=== PATIENT | male | born 1995 | race Caucasian/White ===

== ENCOUNTER 2017-08-27 20:12 | Emergency (ER) | payer MEDICAID ==
[~2017-08-27] VITALS: Ht 175.3 cm; Wt 56.4 kg
[2017-08-27 20:20] VITALS: TEMP 97.9
[2017-08-27] MEDS ORDERED: NOVOLOG 100U100 U/M1 SQ (20:25)
[2017-08-27] MEDS ORDERED: TRESIBA FL100 UNIT/1 SQ (20:26)
[2017-08-27 20:59] LABS: VENOUS BLOOD GAS BE -10.2 (-4-4); VENOUS BLOOD GAS SAO2 46.2 % (60-80)
[2017-08-27 21:00] LABS: VENOUS BLOOD GAS SITE VENIPUNCTURE
[2017-08-27 21:04] LABS: BASO # 0.1 (0.0-0.2); BASO % 1.1 % (0.0-2.0); EOS # 0.4 (0.0-0.7); EOS % 4.8 % (0-4.0); GRAN # 4.2 (1.4-6.5); GRAN % 56.2 % (42.2-75.2); HEMATOCRIT 43.4 % (36.0-47.0); HEMOGLOBIN 15.6 g/dl (12.5-16.1); LYMPH # 2.5 (1.2-3.4); LYMPH % 32.6 % (20.0-51.0); MEAN CELL VOLUME 83 fl (80.0-95.0); MEAN CORPUSCULAR HEMOGLOBIN 30 pg (26.0-32.0); MEAN CORPUSCULAR HGB CONC 36 g/dl (33.0-37.0); MONO # 0.4 (0.1-0.6); PLATELET COUNT 229 K/mm3 (130-400); RED BLOOD COUNT 5.23 M/mm3 (4.20-5.60); REDCELL DISTRIBUTION WIDTH-CV 11.5 % (11.5-14.5); WHITE BLOOD COUNT 7.5 K/mm3 (4.8-10.8)
[2017-08-27 21:12] LABS: ADJUSTED CALCIUM 9.2 mg/dL (8.4-10.2); ALANINE AMINOTRANSFERASE 19 U/L (21-72); ALKALINE PHOSPHATASE 241 U/L (50-136); ANION GAP 23 mmol/L (7-16); BILIRUBIN,TOTAL 1.1 mg/dL (0.0-1.0); BLOOD UREA NITROGEN 22 mg/dL (9-20); CARBON DIOXIDE 16 mmol/L (22-30); CREATININE, serum 0.76 mg/dL (0.66-1.25); LIPASE 57 U/L (23-300); POTASSIUM 4.9 mmol/L (3.4-5.0); SODIUM 126 mmol/L (137-145); TOTAL PROTEIN 8.5 gm/dL (6.4-8.2)
[2017-08-27 21:19] LABS: CHLORIDE 87 mmol/L (98-107)
[2017-08-27 21:20] LABS: GLUCOSE 704 mg/dL (74-106)
[2017-08-27 22:10] LABS: PH 5 (5-8); SQUAMOUS EPITHELIAL None Seen /hpf; URINE APPEARANCE Clear; URINE BACTERIA None Seen /hpf; URINE BILIRUBIN Negative (NEGATIVE); URINE BLOOD Negative (NEGATIVE); URINE COLOR Colorless; URINE GLUCOSE 3+ (NEGATIVE); URINE KETONE 2+ (NEGATIVE); URINE RBC 0-2 /hpf; URINE UROBILINOGEN Negative (NEGATIVE); URINE WBC 0-2 /hpf
[2017-08-27 23:11] VITALS: BP 112/74; PULSE 94
== END 2017-08-27 23:12 | disposition short-term general hospital (02) ==
LOC: COL.ER 20:12
PROVIDERS: Emergency Medicine
DX: E10.10 Type 1 diabetes mellitus with ketoacidosis without coma (principal); E05.90 Thyrotoxicosis, unspecified without thyrotoxic crisis or storm
CPT/HCPCS: J1815; J7030

== ENCOUNTER 2017-10-25 12:25 | Inpatient (IN) | payer MEDICAID ==
[2017-10-25] VITALS (7 sets, daily range): BP systolic 103–116; BP diastolic 62–72; PULSE 89–104; TEMP 98.1–98.7
[~2017-10-25] VITALS: Ht 170.2 cm; Wt 50.6 kg
[~2017-10-25 12:25] MED LIST: LANTUS100 U/ML SQ; NOVOLOG 100U100 U/M1 SQ; TRESIBA FL100 UNIT/1 SQ
[2017-10-25 13:00] LABS: VENOUS BLOOD GAS SAO2 43.9 % (60-80)
[2017-10-25 13:04] LABS: VENOUS BLOOD GAS SITE VENIPUNCTURE
[2017-10-25] MEDS ORDERED: SYNTHROID0.075 MG/T PO (13:10)
[2017-10-25 13:12] LABS: BASO # 0.1 (0.0-0.2); BASO % 1.1 % (0.0-2.0); EOS # 0.2 (0.0-0.7); EOS % 2.7 % (0-4.0); GRAN # 3.1 (1.4-6.5); GRAN % 57.3 % (42.2-75.2); HEMATOCRIT 45.2 % (42.0-52.0); HEMOGLOBIN 15.9 g/dl (13.5-18.0); LYMPH # 1.8 (1.2-3.4); LYMPH % 32.2 % (20.0-51.0); MEAN CELL VOLUME 84 fl (80.0-100.0); MEAN CORPUSCULAR HEMOGLOBIN 30 pg (27.0-31.0); MEAN CORPUSCULAR HGB CONC 35 g/dl (33.0-37.0); MEAN PLATELET VOLUME 9.8 fl (7.4-10.4); MONO # 0.3 (0.1-0.6); MONO % 6.2 % (1.7-9.3); PLATELET COUNT 261 K/mm3 (130-400); RED BLOOD COUNT 5.37 M/mm3 (4.20-5.60); WHITE BLOOD COUNT 5.5 K/mm3 (4.8-10.8)
[2017-10-25 13:38] LABS: ADJUSTED CALCIUM 9.2 mg/dL (8.4-10.2); ALANINE AMINOTRANSFERASE 116 U/L (21-72); ALBUMIN 5.2 gm/dL (3.5-5.0); ALKALINE PHOSPHATASE 216 U/L (50-136); ANION GAP 27 mmol/L (7-16); BILIRUBIN,TOTAL 0.9 mg/dL (0.0-1.0); BLOOD UREA NITROGEN 15 mg/dL (9-20); CALCIUM 10.2 mg/dL (8.4-10.2); CHLORIDE 96 mmol/L (98-107); CREATININE, serum 0.81 mg/dL (0.66-1.25); SODIUM 135 mmol/L (137-145); TOTAL PROTEIN 8.8 gm/dL (6.4-8.2)
[2017-10-25 13:39] LABS: CARBON DIOXIDE 12 mmol/L (22-30); GLUCOSE 436 mg/dL (74-106)
[2017-10-25 13:53] LABS: ACETONE,SERUM MODERATE
[2017-10-25] MEDS ORDERED: LEVEMIR FLEX100 U/ML SQ (15:00)
[2017-10-25 20:34] LABS: CALCIUM 8.7 mg/dL (8.4-10.2); CREATININE, serum 0.64 mg/dL (0.66-1.25)
[2017-10-26] VITALS: BP 96/57; PULSE 81; TEMP 98
[2017-10-26 02:02] LABS: COLLECTION METHOD CLEAN CATCH
[2017-10-26 02:08] LABS: MUCOUS Present /lpf; PH 5 (5-8); SQUAMOUS EPITHELIAL None Seen /hpf; URINE APPEARANCE Clear; URINE BACTERIA None Seen /hpf; URINE BILIRUBIN Negative (NEGATIVE); URINE BLOOD Negative (NEGATIVE); URINE COLOR Yellow; URINE GLUCOSE 3+ (NEGATIVE); URINE KETONE 2+ (NEGATIVE); URINE LEUKOCYTE ESTERASE Negative (NEGATIVE); URINE PROTEIN(semi-quant) Negative (NEGATIVE); URINE RBC 0-2 /hpf; URINE UROBILINOGEN Negative (NEGATIVE); URINE WBC 0-2 /hpf
[2017-10-26 02:43] LABS: CALCIUM 8.7 mg/dL (8.4-10.2); CREATININE, serum 0.66 mg/dL (0.66-1.25); POTASSIUM 3.9 mmol/L (3.4-5.0)
[2017-10-26 04:00] VITALS: BP 102/46; PULSE 67
[2017-10-26 08:00] VITALS: BP 108/72; PULSE 69; TEMP 97.4
[2017-10-26 08:24] LABS: CALCIUM 8.7 mg/dL (8.4-10.2); CREATININE, serum 0.56 mg/dL (0.66-1.25)
[2017-10-26 12:00] VITALS: BP 115/69; PULSE 81; TEMP 97.6
[2017-10-26 16:00] VITALS: BP 113/64; PULSE 97; TEMP 97.5
[2017-10-26 18:56] LABS: CALCIUM 9.4 mg/dL (8.4-10.2); CREATININE, serum 0.8 mg/dL (0.66-1.25); POTASSIUM 4.2 mmol/L (3.4-5.0)
[2017-10-26 20:00] VITALS: BP 112/71; PULSE 83; TEMP 97.6
[2017-10-27 00:04] VITALS: BP 114/69; PULSE 86; TEMP 97.6
[2017-10-27 04:13] VITALS: BP 114/69; PULSE 89
[2017-10-27 05:53] LABS: CALCIUM 8.7 mg/dL (8.4-10.2); CREATININE, serum 0.67 mg/dL (0.66-1.25); MAGNESIUM 1.5 mg/dL (1.6-2.3); POTASSIUM 3.6 mmol/L (3.4-5.0)
[2017-10-27 07:00] VITALS: BP 112/66; PULSE 68; TEMP 98
[2017-10-27 12:35] VITALS: BP 115/73; PULSE 106; TEMP 97.7
== END 2017-10-27 15:04 | disposition home or self-care (01) | DRG 639 ==
LOC: COL.ER 12:25 → ICU 13:48
PROVIDERS: Emergency Medicine; Internal Medicine
DX: E10.10 Type 1 diabetes mellitus with ketoacidosis without coma (principal); E03.9 Hypothyroidism, unspecified; Z79.4 Long term (current) use of insulin; Z91.14 Patient's other noncompliance with medication regimen
CPT/HCPCS: 99223-AI; 99233-AI; 99239; J1650; J1815; J3480; J7030; J7042